=== PATIENT | female | born 1990 ===

== ENCOUNTER 2021-05-18 12:15 | Emergency (ER) | payer MEDICAID, OTHER ==
[~2021-05-18] VITALS: Ht 149.9 cm; Wt 52.2 kg
[~2021-05-18 12:15] MED LIST: ACYC200C13 PO
[2021-05-18 12:21] VITALS: BP 115/76
[2021-05-18] MEDS ORDERED: LIDODERM 5% PATCH TD ONE ×2 (12:55→13:00)
[2021-05-18] MEDS ORDERED: DIAZEPAM 5 MG TABLET ONE (12:55)
[2021-05-18] MEDS ORDERED: KETOROLAC 30 MG/1 ML ONE (12:56)
[2021-05-18] MEDS ORDERED: KETOROLAC 30 MG/1 ML IM ONE (13:00)
[2021-05-18] MEDS: DIAZEPAM 5 MG TABLET PO ONE ×2 (13:03→13:31)
--- NOTE | 2021-05-18 13:03 | NUR ---
PT REFUSED VALIUM, PT UNABLE TO FIND RIDE HOME. ALL OTHER MEDS ADMIN PER JAN.
--- NOTE | 2021-05-18 13:31 | NUR ---
PT HAS RIDE HOME. VALIUM ADMIN PER JAN.
== END 2021-05-18 13:59 | disposition home or self-care (01) ==
LOC: ED 12:51
DX: M54.5 Low back pain (principal)
CPT/HCPCS: 96372; 99283; J1885